=== PATIENT | female | born 1955 | race Caucasian/White ===

== ENCOUNTER 2024-02-01 13:34 | Emergency (ER) | payer MEDICARE ==
[2024-02-01] MEDS ORDERED: Lidocaine/Transparent Dressing 1 EACH KIT ONE (15:27)
[2024-02-01 16:35] LABS: AST (SGOT) 21 U/L (5-34); Alkaline Phosphatase 105 U/L (40-110); Anion Gap 22 mmol/L (10-20); BUN (Urea Nitrogen) 15 mg/dL (9.8-20.1); Bilirubin, Total 0.8 mg/dL (0.2-1.2); Calc. Creatinine Clearance 0 mL/min (70-130); Calcium 9.2 mg/dL (7.8-10.44); Carbon Dioxide 16 mmol/L (23-31); Chloride 109 mmol/L (98-107); Estimated GFR 90; Globulin 3.7 g/dL (2.4-3.5); Glucose 86 mg/dL (80-115); Potassium 5.1 mmol/L (3.5-5.1); Protein, Total 7.7 g/dL (5.8-8.1); Sodium 142 mmol/L (136-145)
[2024-02-01] MEDS ORDERED: Rivaroxaban 10 MG TAB ONE (16:42)
[2024-02-01] MEDS ORDERED: Rivaroxaban 15 MG TAB PO SCH (16:45)
== END 2024-02-01 16:48 | disposition home or self-care (01) ==
LOC: ERS 13:34
DX: I82.411 Acute embolism and thrombosis of right femoral vein (principal); I82.441 Acute embolism and thrombosis of right tibial vein; Z75.3 Unavailability and inaccessibility of health-care facilities; Z55.6 Problems related to health literacy
CPT/HCPCS: 36415; 80053